=== PATIENT | female | born 1950 | race Caucasian/White ===

== ENCOUNTER 2017-07-19 03:54 | Emergency (ER) | payer MEDICARE ==
[2017-07-19 04:15] VITALS: TEMP 97.8; O2SAT 92
[2017-07-19] MEDS ORDERED: MORPHINE SULFATE INJ 10 MG/ML VIAL ONE (04:24)
--- NOTE | 2017-07-19 04:24 | ED.PDOC ---
History of Present Illness - General Chief Complaint: Back Pain or Injury Stated Complaint: left lower back pain Time Seen by Provider: 07/19/17 04:18 Source: patient Exam Limitations: clinical condition - History of Present Illness Initial Comments: Patient presents with left flank pain that started overnight. It is constant, non-radiating, worse with movement, better with rest, no previous episodes. No dysuria/anuria. She thinks her urine is darker. No fevers. Patient has metastatic breast CA and has electively stopped chemotherapy. She takes only one herb. No other complaints. Timing/Duration: 4-6 hours Severity: moderate Worsening Factors: movement Associated Symptoms: denies symptoms Allergies/Adverse Reactions: Allergies Penicillins Allergy (Verified 07/19/17 04:15) Home Medications: Ambulatory Orders Acetaminophen W/ Codeine [Tylenol W/ CODEINE #3] 1 ea PO Q6HRS PRN #10 Diphenhydramine-Acetaminophen [Percogesic Extra Strength 12.5-500 mg] 07/19/17 Sulfa/Trimeth 800/160 (Ds) Tab [Bactrim DS] 1 tablet PO BID #9 tab 07/19/17 Review of Systems - Review of Systems Constitutional: States: no symptoms reported EENTM: States: no symptoms reported Respiratory: States: no symptoms reported Cardiology: States: no symptoms reported Gastrointestinal/Abdominal: States: no symptoms reported Musculoskeletal: States: no symptoms reported Skin: States: no symptoms reported Neurological: States: no symptoms reported Endocrine: States: no symptoms reported Hematologic/Lymphatic: States: no symptoms reported Past Medical History (General) - Patient Medical History Hx Seizures: No Hx Stroke: No Hx Dementia: No Hx Asthma: No Hx of COPD: No Hx Cardiac Disorders: No Hx Congestive Heart Failure: No Hx Pacemaker: No Hx Hypertension: No Hx Thyroid Disease: No Hx Diabetes: No Hx Gastroesophageal Reflux: No Hx Renal Disease: No Hx Cancer: Yes - breast Hx of HIV: No Hx MRSA: No Surgical History: appendectomy, cholecystectomy, Hysterectomy - Vaccination History Hx Tetanus, Diphtheria Vaccination: No Hx Influenza Vaccination: Yes Hx Pneumococcal Vaccination: No - Social History Hx Tobacco Use: No Hx Chewing Tobacco Use: No Hx Alcohol Use: No Hx Substance Use: No Hx Substance Use Treatment: No Hx Depression: Yes Hx Physical Abuse: No Hx Emotional Abuse: No Hx Suspected Abuse: No - Female History Patient : No Family Medical History - Family History Mother Hx Family Cancer: Yes - lung Physical Exam - Physical Exam General Appearance: Alert Respiratory: lungs clear, normal breath sounds Cardiovascular/Chest: normal peripheral pulses, regular rate, rhythm Gastrointestinal/Abdominal: normal bowel sounds, non tender, soft Back Exam: CVA tenderness (L) Extremity: normal range of motion, non-tender, normal inspection Neurologic: no motor/sensory deficits Skin Exam: normal color Lymphatic: no adenopathy Progress - Progress Progress: 07/19/17 04:45 Laboratory Tests 07/19/17 07/19/17 04:10 04:23 WBC 10.2 RBC 4.31 Hgb 13.4 Hct 39.7 MCV 92.1 MCH 31.2 H MCHC 33.8 RDW 13.9 Plt Count 336 MPV 7.3 L Absolute Neuts (auto) 7.50 H Absolute Lymphs (auto) 1.60 Absolute Monos (auto) 0.80 Absolute Eos (auto) 0.20 Absolute Basos (auto) 0.10 Neutrophils % 73.7 Lymphocytes % 16.0 L Monocytes % 7.6 Eosinophils % 2.2 Basophils % 0.5 Urine Color Yellow Urine Appearance Cloudy Urine pH 5.5 Ur Specific [place] 1.025 Urine Protein 100 H Urine Glucose (UA) Negative Urine Ketones Negative Urine Blood Large H Urine Nitrite Positive H Urine Bilirubin Negative Urine Urobilinogen 0.2 Ur Leukocyte Esterase Moderate H Urine RBC Tntc H Urine WBC >100 H Ur Epithelial Cells 40-50 Urine Bacteria 4+ H Urine Mucus Trace Patient given Bactrim DS in the E.R. and RX for 5 days. Departure - Departure Clinical Impression: Urinary tract infection Disposition: Discharge to Home or Self Care Condition: Good Departure Forms: ED Discharge - Pt. Copy, Patient Portal Self Enrollment Instructions: DI for Low Back Pain Diet: resume usual diet Activity: increase activity as tolerated Referrals: Jerome Sanchez MD [Primary Care Provider] - 1-2 Weeks Prescriptions: Acetaminophen W/ Codeine [Tylenol W/ CODEINE #3] 1 ea PO Q6HRS PRN #10 PRN Reason: Moderate Pain Sulfa/Trimeth 800/160 (Ds) Tab [Bactrim DS] 1 tablet PO BID #9 tab Home Medications: Ambulatory Orders Acetaminophen W/ Codeine [Tylenol W/ CODEINE #3] 1 ea PO Q6HRS PRN #10 Diphenhydramine-Acetaminophen [Percogesic Extra Strength 12.5-500 mg] 07/19/17 Sulfa/Trimeth 800/160 (Ds) Tab [Bactrim DS] 1 tablet PO BID #9 tab 07/19/17
[2017-07-19] MEDS ORDERED: MORPHINE SULFATE INJ 10 MG/ML VIAL IM ONE (04:25)
[2017-07-19] MEDS ORDERED: SULFA/TRIMETH 800/160 (DS) TAB 1 EA TAB PO ONE (04:44)
[2017-07-19 05:02] VITALS: BP 158/92
== END 2017-07-19 05:00 | disposition home or self-care (01) ==
LOC: ER 03:54
DX: N39.0 Urinary tract infection, site not specified (principal); C50.919 Malignant neoplasm of unspecified site of unspecified female breast; C79.9 Secondary malignant neoplasm of unspecified site
CPT/HCPCS: 36415; 80048; 81001; 85025; 87086; 87088; 87186; J2270

== ENCOUNTER 2017-08-01 11:53 | Emergency (ER) | payer MEDICARE ==
--- NOTE | 2017-08-01 12:22 | ED.PDOC ---
History of Present Illness - General Chief Complaint: Problem Stated Complaint: flank pain Time Seen by Provider: 08/01/17 12:00 Source: patient Exam Limitations: no limitations - History of Present Illness Initial Comments: Debbie Tapia 67 y/o female stated that she had dull right flank pain since a week ago which and not any better even after treatment for UTI.She also stated that she has right breast cancer with distant metastases and doesnt want to undergo further chemo treatment and just taking herbs. Denies fever,nausea, vomiting. Timing/Duration: week Quality: steady Onset Location: right flank Radiation: none Activites at Onset: none Prior abdominal problems: similar symptoms Sexual intercourse history: not active Improving Factors: nothing Worsening Factors: nothing Associated Symptoms: denies symptoms Allergies/Adverse Reactions: Allergies Penicillins Allergy (Verified 08/01/17 12:21) Home Medications: Ambulatory Orders Acetaminophen W/ Codeine [Tylenol W/ CODEINE #3] 1 ea PO Q6HRS PRN #10 Diphenhydramine-Acetaminophen [Percogesic Extra Strength 12.5-500 mg] 07/19/17 Sulfa/Trimeth 800/160 (Ds) Tab [Bactrim DS] 1 tablet PO BID #9 tab 07/19/17 Review of Systems - Review of Systems Constitutional: States: no symptoms reported EENTM: States: no symptoms reported Respiratory: States: no symptoms reported Cardiology: States: no symptoms reported Gastrointestinal/Abdominal: States: no symptoms reported Genitourinary: States: discharge Musculoskeletal: States: no symptoms reported Skin: States: no symptoms reported Neurological: States: no symptoms reported All other Systems: Reviewed and Negative, No Change from Baseline Past Medical History (General) - Patient Medical History Hx Seizures: No Hx Stroke: No Hx Dementia: No Hx Asthma: No Hx of COPD: No Hx Cardiac Disorders: No Hx Congestive Heart Failure: No Hx Pacemaker: No Hx Hypertension: No Hx Thyroid Disease: No Hx Diabetes: No Hx Gastroesophageal Reflux: No Hx Renal Disease: No Hx Cancer: Yes - breast Hx of HIV: No Hx MRSA: No Surgical History: appendectomy, cholecystectomy, other - hysterectomy - Vaccination History Hx Tetanus, Diphtheria Vaccination: No Hx Influenza Vaccination: Yes Hx Pneumococcal Vaccination: No - Social History Hx Tobacco Use: No Hx Chewing Tobacco Use: No Hx Alcohol Use: No Hx Substance Use: No Hx Substance Use Treatment: No Hx Depression: Yes Hx Physical Abuse: No Hx Emotional Abuse: No Hx Suspected Abuse: No - Female History Patient : No Family Medical History - Family History Mother Hx Family Cancer: Yes - lung Physical Exam - Physical Exam General Appearance: Alert, Comfortable, No apparent distress Eyes, Ears, Nose, Throat Exam: PERRL/EOMI, normal ENT inspection Neck: non-tender, full range of motion, supple Cardiovascular/Respiratory: regular rate, rhythm, no M/R/G, normal peripheral pulses, no JVD Gastrointestinal/Abdominal: normal bowel sounds, non tender, soft, no organomegaly Back Exam: no CVA tenderness, no vertebral tenderness Extremity: non-tender, no pedal edema, no calf tenderness Neurologic: alert, oriented x 3 Skin Exam: normal color, warm/dry Progress - Progress Progress: 08/01/17 12:27 Vital Signs - 8 hr 08/01/17 12:05 Temperature 97.6 F Pulse Rate [ 109 H pulse ox] Respiratory 20 Rate Blood Pressure 164/85 [Left Arm] O2 Sat by Pulse 97 Oximetry 08/01/17 14:21 D/W Dr. Kumar -Urologist and he will admit patient at [facility].May go by POV. 08/01/17 14:22 - Results/Orders Results/Orders: 08/01/17 12:26 IV Care:Saline Lock per Protoc QSHIFT 08/01/17 12:57 URINE CULTURE W/COLONY COUNT Stat Laboratory Results - last 24 hr 08/01/17 08/01/17 08/01/17 12:40 12:40 12:57 WBC 18.9 H RBC 4.44 Hgb 13.5 Hct 41.1 MCV 92.7 MCH 30.5 MCHC 32.9 L RDW 13.9 Plt Count 396 MPV 7.1 L Absolute Neuts (auto) 16.30 H Absolute Lymphs (auto) 1.20 Absolute Monos (auto) 1.10 H Absolute Eos (auto) 0.20 Absolute Basos (auto) 0.00 Neutrophils % 86.5 H Lymphocytes % 6.3 L Monocytes % 5.9 Eosinophils % 1.1 Basophils % 0.2 Sodium 136 Potassium 4.2 Chloride 106 Carbon Dioxide 19 L Anion Gap 15.2 BUN 32 H Creatinine 2.42 H BUN/Creatinine Ratio 13.2 Random Glucose 116 H Serum Osmolality 279.8 Calcium 9.7 Total Bilirubin 1.0 AST 22 ALT 17 Alkaline Phosphatase 200 H Serum Total Protein 7.8 Albumin 4.0 Globulin 3.8 H Albumin/Globulin Ratio 1.1 Urine Color Yellow Urine Appearance Cloudy Urine pH 5.0 Ur Specific [place] 1.025 Urine Protein >=300 H Urine Glucose (UA) Negative Urine Ketones Negative Urine Blood Large H Urine Nitrite Negative Urine Bilirubin Negative Urine Urobilinogen 0.2 Ur Leukocyte Esterase Small H Urine RBC 10-20 H Urine WBC 10-20 H Ur Epithelial Cells 0-1 Urine Bacteria 2+ H - EKG/XRAY/CT CT Ordered: Yes - abd /pelvis -7 mm mid ureteral stone right Departure - Departure Clinical Impression: Ureteral stone with hydronephrosis, Obstructive uropathy, Flank pain Renal failure, unspecified Qualifiers: Renal failure chronicity: acute Acute renal failure type: with other specified pathological lesion Qualified Code(s): N17.8 - Other acute kidney failure Time of Disposition: 14:27 Disposition: Transfer to Hospital Condition: Good Departure Forms: ED Discharge - Pt. Copy, Patient Portal Self Enrollment Referrals: Jerome Sanchez MD [Primary Care Provider] - 1-2 Weeks Home Medications: Ambulatory Orders Acetaminophen W/ Codeine [Tylenol W/ CODEINE #3] 1 ea PO Q6HRS PRN #10 Diphenhydramine-Acetaminophen [Percogesic Extra Strength 12.5-500 mg] 07/19/17 Sulfa/Trimeth 800/160 (Ds) Tab [Bactrim DS] 1 tablet PO BID #9 tab 07/19/17 Transfer to Outside Facility - Transfer Information Accepting Provider:: Dr. Jaime Kumar-Urologist Accepting Facility: [facility] Reason for Transfer: required specialist not available
[2017-08-01] MEDS ORDERED: LACTATED RINGERS 1,000 ML IVS ONE (12:26)
[2017-08-01] MEDS ORDERED: KETOROLAC TROMETHAMINE INJ 30 MG/ML VIAL IV ONE (12:26)
--- NOTE | 2017-08-01 12:59 | CT ---
PROCEDURE: Abdoment/Pelvis w/o Contrast HISTORY: right flank pain/hematuria Indication: Same as above Comparison: None Technique: CT of the abdomen and pelvis was done without intravenous contrast. Images were obtained from the lung base to the level of the pubic symphysis in axial plane, followed by orthogonal sagittal and coronal reconstruction. Oral contrast was not given for the study. This exam was performed according to our departmental dose-optimization program, which includes automated exposure control, adjustment of the mA and/or KV according to the patient's size and/or use of iterative reconstruction technique. FINDINGS: Images through the lung bases do not show any focal infiltrates or pleural effusions. A subcentimeter benign calcified granuloma seen in the left lower lobe of the lung. There is a well-circumscribed subcentimeter calcific density seen anterior to the thoracic esophagus and may represent a benign calcified lymph node The liver, pancreas, spleen and the bilateral adrenal glands appear unremarkable, given the limitation of lack of intravenous contrast. There is prior cholecystectomy There is right-sided hydroureteronephrosis to the level of the 7 mm mid abdominal right ureteral calculus seen at L4 level. There is no right-sided nephrolithiasis. Note is made of multiple subcentimeter nonobstructive left renal calculi. There is no left-sided hydroureteronephrosis. Renal cortical parenchymal scarring is seen in the left kidney, which may be due to prior episodes of infection/inflammation of the left kidney The urinary bladder is unremarkable, without any evidence of wall thickening, calculi or filling defects. The small bowel appears unremarkable, without any evidence of small bowel obstruction or bowel wall thickening. There is no CT evidence of pericecal inflammatory change or ileocecal mesenteric adenitis. The ileocecal junction appears unremarkable. The appendix is not visualized There is no CT evidence of acute colonic diverticulitis or colitis or large bowel obstruction. There is no pathological lymphadenopathy in the retroperitoneum or in the pelvic region. There is no evidence of free fluid or free air in the abdomen or the pelvic region. There is no clinically significant abdominal aortic aneurysm. There is no clinically significant inguinal or ventral hernia. There is prior hysterectomy The visualized lumbar spine is unremarkable. The paravertebral soft tissues are unremarkable. The remainder of the pelvic structures are unremarkable. IMPRESSION: There is right-sided hydroureteronephrosis to the level of the 7 mm mid abdominal right ureteral calculus seen at L4 level. There is no right-sided nephrolithiasis. Note is made of multiple subcentimeter nonobstructive left renal calculi. There is no left-sided hydroureteronephrosis. Renal cortical parenchymal scarring is seen in the left kidney, which may be due to prior episodes of infection/inflammation of the left kidney Electronically signed by: Vikram Farley MD 08/01/2017 12:59 PM CDT Workstation: [id number]
[2017-08-01] MEDS ORDERED: MEROPENEM 500 MG in SODIUM CHL 0.9% 50ML MIN-BAG+ 50 ML IVPB ONE (13:52)
[2017-08-01] MEDS ORDERED: SODIUM CHL 0.9% 50ML MIN-BAG+ 50 ML IVPB ONE (13:54)
[2017-08-01] MEDS ORDERED: MEROPENEM 500 MG VIAL IVPB ONE (13:54)
[2017-08-01] MEDS ORDERED: fentaNYL CITRATE INJ 50 MCG/ML AMP IV ONE (14:26)
[2017-08-01 15:04] VITALS: BP 138/80; TEMP 98.8; O2SAT 96
== END 2017-08-01 15:04 | disposition short-term general hospital (02) ==
LOC: ER 11:53
DX: N13.2 Hydronephrosis with renal and ureteral calculous obstruction (principal); N17.8 Other acute kidney failure; C50.911 Malignant neoplasm of unspecified site of right female breast; C79.9 Secondary malignant neoplasm of unspecified site
CPT/HCPCS: 36415; 74176; 80053; 81001; 85025; 87086; 87088; 87186; J1885; J2185; J3010; J7050; J7120

== ENCOUNTER 2017-09-17 23:41 | Emergency (ER) | payer MEDICARE ==
[2017-09-18] VITALS: BP 179/83; TEMP 98.4; O2SAT 96
--- NOTE | 2017-09-18 00:04 | ED.PDOC ---
History of Present Illness - General Chief Complaint: Back Pain or Injury Stated Complaint: Lower Back Pain Time Seen by Provider: 09/17/17 23:59 Source: patient Exam Limitations: no limitations - History of Present Illness Initial Comments: Patient presents with right CVA tenderness for about 12 hours. She says she has a "kidney stone" and that the had lithotripsy but there is still a fragment in there. She believes that her urine has become darker this evening. No dysuria nor frequency. No other complaints. Timing/Duration: other - 12 hours Severity: moderate Improving Factors: rest Worsening Factors: movement Associated Symptoms: denies symptoms Allergies/Adverse Reactions: Allergies Penicillins Allergy (Verified 08/01/17 12:21) Home Medications: Ambulatory Orders Acetaminophen W/ Codeine [Tylenol W/ CODEINE #3] 1 ea PO Q6HRS PRN #10 Diphenhydramine-Acetaminophen [Percogesic Extra Strength 12.5-500 mg] 07/19/17 Sulfa/Trimeth 800/160 (Ds) Tab [Bactrim DS] 1 tablet PO BID #9 tab 07/19/17 Acetamin W/Cod #3 Tab [Tylenol w/CODEINE #3] 1 ea PO Q4HR PRN #14 tab 09/18/17 Sulfa/Trimeth 800/160 (Ds) Tab [Bactrim DS] 1 tablet PO BID #9 tab 09/18/17 Review of Systems - Review of Systems Constitutional: States: no symptoms reported EENTM: States: no symptoms reported Respiratory: States: no symptoms reported Cardiology: States: no symptoms reported Gastrointestinal/Abdominal: States: no symptoms reported Genitourinary: States: see HPI Musculoskeletal: States: no symptoms reported Skin: States: no symptoms reported Neurological: States: no symptoms reported Endocrine: States: no symptoms reported Hematologic/Lymphatic: States: no symptoms reported Past Medical History (General) - Patient Medical History Hx Seizures: No Hx Stroke: No Hx Dementia: No Hx Asthma: No Hx of COPD: No Hx Cardiac Disorders: No Hx Congestive Heart Failure: No Hx Pacemaker: No Hx Hypertension: No Hx Thyroid Disease: No Hx Diabetes: No Hx Gastroesophageal Reflux: No Hx Renal Disease: No Hx Cancer: Yes - breast Hx of HIV: No Hx Hepatitis C: No Hx MRSA: No Surgical History: appendectomy, cholecystectomy, Hysterectomy - Vaccination History Hx Tetanus, Diphtheria Vaccination: Yes Hx Influenza Vaccination: Yes Hx Pneumococcal Vaccination: Yes Immunizations Up to Date: Yes - Social History Hx Tobacco Use: No Hx Chewing Tobacco Use: No Hx Alcohol Use: No Hx Substance Use: No Hx Substance Use Treatment: No Hx Depression: No Hx Physical Abuse: No Hx Emotional Abuse: No Hx Suspected Abuse: No - Female History Patient is a Female of Child Bearing Age (10 -59 yrs old): No Patient : No - Triage Comment ED Triage Comment: Pt states she is having lower back pain and thinks it may be a kidney stone. She was at [facility] two weeks ago to have a kidney stone broken up. Family Medical History - Family History Mother Family History: Unknown Hx Family Cancer: Yes - lung Physical Exam - Physical Exam General Appearance: Alert Respiratory: chest non-tender, lungs clear, normal breath sounds Cardiovascular/Chest: normal peripheral pulses, regular rate, rhythm, no edema Gastrointestinal/Abdominal: normal bowel sounds, non tender, soft Back Exam: no vertebral tenderness, CVA tenderness (R) Extremity: normal range of motion, non-tender, normal inspection Neurologic: calciner feeder II-XII nml as tested, no motor/sensory deficits, alert Departure - Departure Clinical Impression: Urinary tract infection Disposition: Discharge to Home or Self Care Condition: Good Departure Forms: ED Discharge - Pt. Copy, Patient Portal Self Enrollment Instructions: DI for Low Back Pain Diet: other - increase fluids Activity: increase activity as tolerated Referrals: Jerome Sanchez MD [Primary Care Provider] - 1-2 Weeks Prescriptions: Acetamin W/Cod #3 Tab [Tylenol w/CODEINE #3] 1 ea PO Q4HR PRN #14 tab PRN Reason: Pain Sulfa/Trimeth 800/160 (Ds) Tab [Bactrim DS] 1 tablet PO BID #9 tab Home Medications: Ambulatory Orders Acetaminophen W/ Codeine [Tylenol W/ CODEINE #3] 1 ea PO Q6HRS PRN #10 Diphenhydramine-Acetaminophen [Percogesic Extra Strength 12.5-500 mg] 07/19/17 Sulfa/Trimeth 800/160 (Ds) Tab [Bactrim DS] 1 tablet PO BID #9 tab 07/19/17 Acetamin W/Cod #3 Tab [Tylenol w/CODEINE #3] 1 ea PO Q4HR PRN #14 tab 09/18/17 Sulfa/Trimeth 800/160 (Ds) Tab [Bactrim DS] 1 tablet PO BID #9 tab 09/18/17
[2017-09-18] MEDS ORDERED: SULFA/TRIMETH 800/160 (DS) TAB 1 EA TAB PO ONE (00:27)
[2017-09-18] MEDS ORDERED: KETOROLAC TROMETHAMINE INJ 30 MG/ML VIAL IM ONE (00:27)
== END 2017-09-18 00:49 | disposition home or self-care (01) ==
LOC: ER 23:41
DX: N39.0 Urinary tract infection, site not specified (principal); Z85.3 Personal history of malignant neoplasm of breast
CPT/HCPCS: 81001; 87086; J1885

== ENCOUNTER 2017-10-21 09:57 | Emergency (ER) | payer MEDICARE ==
[2017-10-21] MEDS ORDERED: HYDROmorphone HCL INJ 2 MG/ML VIAL IV ONE (10:18)
[2017-10-21] MEDS ORDERED: SODIUM CHLORIDE 0.9% (FLUSH) 10 ML SYG IV PRN (10:18)
[2017-10-21] MEDS ORDERED: SODIUM CHLORIDE 0.9% 1000ML 1,000 ML IVS PRN (10:18)
[2017-10-21] MEDS ORDERED: ONDANSETRON INJ 4 MG/2 ML VIAL IV ONE (10:18)
[2017-10-21] MEDS ORDERED: KETOROLAC TROMETHAMINE INJ 30 MG/ML VIAL IV ONE (10:18)
--- NOTE | 2017-10-21 10:22 | ED.PDOC ---
History of Present Illness - General Chief Complaint: Back Pain or Injury Stated Complaint: low back pain Time Seen by Provider: 10/21/17 10:11 Source: patient Exam Limitations: no limitations - History of Present Illness Initial Comments: PT REPORTS SUDDEN ONSET OF BILATERAL FLANK PAIN TODAY WHILE WALKING IN HER HOME. PT REPORTS RECENT HISTORY OF KIDNEY STONES AND STATES THAT PAIN IS SIMILAR BUT MORE SEVERE. PT DENIES SOB, CP, ABD PAIN. PT HAS A HISTORY OF METASTATIC BREAST CANCER THAT HAS NOT BEEN TREATED. PT REPORTS METS TO THE LIVER AND BONE. Timing/Duration: 1-3 hours Quality/Severity: severe Improving Factors: nothing Worsening Factors: nothing Associated Symptoms: denies symptoms Allergies/Adverse Reactions: Allergies Penicillins Allergy (Verified 08/01/17 12:21) Home Medications: Ambulatory Orders Acetaminophen W/ Codeine [Tylenol W/ CODEINE #3] 1 ea PO Q4HR PRN #24 10/21/17 Review of Systems - Review of Systems Constitutional: Denies: chills, fever EENTM: Denies: nose congestion, throat pain Respiratory: Denies: cough, short of breath Cardiology: Denies: chest pain, palpitations Gastrointestinal/Abdominal: States: nausea, vomiting. Denies: abdominal pain, diarrhea Genitourinary: Denies: dysuria, hematuria Musculoskeletal: Denies: joint pain, muscle pain Skin: Denies: dryness, lesions Neurological: Denies: headache, numbness Endocrine: States: unexplained weight loss Hematologic/Lymphatic: States: no symptoms reported Past Medical History (General) - Patient Medical History Hx Seizures: No Hx Stroke: No Hx Dementia: No Hx Asthma: No Hx of COPD: No Hx Cardiac Disorders: No Hx Congestive Heart Failure: No Hx Pacemaker: No Hx Hypertension: No Hx Thyroid Disease: No Hx Diabetes: No Hx Gastroesophageal Reflux: No Hx Renal Disease: No Hx Cancer: Yes - BREAST WITH METS TO LIVER, BONE, NOT BEING TREATED Hx of HIV: No Hx Hepatitis C: No Hx MRSA: No Surgical History: appendectomy, cholecystectomy, Hysterectomy - Vaccination History Hx Tetanus, Diphtheria Vaccination: Yes Hx Influenza Vaccination: Yes Hx Pneumococcal Vaccination: Yes - Social History Hx Tobacco Use: No Hx Chewing Tobacco Use: No Hx Alcohol Use: No Hx Substance Use: No Hx Substance Use Treatment: No Hx Depression: No Hx Physical Abuse: No Hx Emotional Abuse: No Hx Suspected Abuse: No - Female History Patient is a Female of Child Bearing Age (10 -59 yrs old): No Patient : No Family Medical History - Family History Mother Family History: Unknown Hx Family Cancer: Yes - lung Physical Exam - Physical Exam General Appearance: Alert, Obvious distress, Well Hydrated Eyes, Ears, Nose, Throat Exam: normal ENT inspection Neck Exam: normal alignment, normal inspection Cardiovascular/Respiratory: regular rate, rhythm, no M/R/G, normal breath sounds , no respiratory distress Gastrointestinal/Abdominal: non tender, soft Back Exam: CVA tenderness (R), CVA tenderness (L) Extremity Exam: no evidence of injury, normal range of motion Neurologic: alert, normal mood/affect, oriented x 3 Skin Exam: normal color, warm/dry Progress - Progress Progress: 10/21/17 12:23 PT RESTING COMFORTABLY AFTER IV TORADOL AND DILAUDID. CT AND LAB FINDINGS DISCUSSED. - EKG/XRAY/CT CT: ABD/PEL CT Ordered: Yes CT Interpretation Call Back: Yes - FINDINGS DISCUSSED WITH RADIOLOGIST CT Interpretation Call Back Date: 10/21/17 CT Interpretation Call Back Time: 11:40 Departure - Departure Clinical Impression: Pathologic compression fracture of spine, Metastatic breast cancer Time of Disposition: 12:25 Disposition: Discharge to Home or Self Care Condition: Fair Departure Forms: ED Discharge - Pt. Copy, Patient Portal Self Enrollment Instructions: DI for Vertebral Fracture Diet: resume usual diet Activity: walking as tolerated Referrals: Chava Reid MD [Referring] - 1-2 Weeks Prescriptions: Acetaminophen W/ Codeine [Tylenol W/ CODEINE #3] 1 ea PO Q4HR PRN #24 PRN Reason: Pain Home Medications: Ambulatory Orders Acetaminophen W/ Codeine [Tylenol W/ CODEINE #3] 1 ea PO Q4HR PRN #24 10/21/17
--- NOTE | 2017-10-21 11:12 | CT ---
Study: CT abdomen and pelvis. Indication: FLANK PAIN, H/O RENAL STONES Technique: CT of the abdomen and pelvis obtained without intravenous contrast. This exam was performed according to our departmental dose-optimization program, which includes automated exposure control, adjustment of the mA and/or kV according to patient size and/or use of iterative reconstruction technique. Comparison: August 01, 2017. Findings: Lung bases hyperexpanded. Calcified granuloma left lung base as well as adjacent to the gastric esophageal junction. Cholecystectomy clips. Inferior heart unremarkable. Liver, pancreas, spleen, adrenal glands, and bladder demonstrate a normal unenhanced CT appearance. Uterus and ovaries likely surgically absent or small. No right renal stone. The superior and inferior poles of the right kidney are slightly lobulated. Several tiny central nonobstructing left renal calculi measuring up to 3 mm. Minimal prominence left renal collecting system. No hydronephrosis or obstructing stone on the left. Persistent mild atrophy and cortical scarring of the left kidney. Appendix not visualized. Stomach, small bowel, and colon unremarkable. No free fluid. No free air. Gross aorta. Degenerative changes of the spine noted. Extensive lytic lesions throughout the lumbar spine and pelvis noted and are markedly progressed compared to the prior. New biconcave fracture deformity T11 with superior endplate deformities of T9 indicate pathologic fractures. In addition, there is a new inferior endplate deformity at L5. Impression: Progressive lytic lesions throughout the lumbar spine and pelvis concerning for metastatic disease versus multiple myeloma. Associated pathologic fractures noted at T11, T9, and L5. Further characterization with MRI of the thoracic spine and MRI of the lumbar spine recommended. Biopsy and kyphoplasty could be performed as clinically indicated. Central nonobstructing left renal calculi with associated cortical atrophy and scarring. No hydronephrosis. Findings on this exam were called to Dr. Qian Richter at 10/21/2017 11:10 AM CDT. Electronically signed by: Osmel Varner MD 10/21/2017 11:10 AM CDT
[2017-10-21 13:40] VITALS: BP 169/90; TEMP 97.3; O2SAT 96
== END 2017-10-21 13:39 | disposition home or self-care (01) ==
LOC: ER 09:57
DX: M48.55XA Collapsed vertebra, not elsewhere classified, thoracolumbar region, initial encounter for fracture (principal); C50.919 Malignant neoplasm of unspecified site of unspecified female breast; C79.51 Secondary malignant neoplasm of bone; C78.7 Secondary malignant neoplasm of liver and intrahepatic bile duct; Z88.0 Allergy status to penicillin
CPT/HCPCS: 74176; 80048; 85025; J1170; J1885; J2405; J7030